=== PATIENT | male | born 1955 | race Caucasian/White ===

== ENCOUNTER 2024-10-04 19:51 | Inpatient (IN) | payer MEDICARE, OTHER ==
[2024-10-04] MEDS: cefTRIAXone 2 GM Vial IVPUSH SCH (20:20)
[2024-10-04] MEDS: Sodium Chloride 0.9% 1,000 ML IV SCH ×2 (20:22→21:50)
[2024-10-04] MEDS: Doxycycline 100 MG in Sodium Chloride 0.9% 100 ML IV ONE (20:23)
[2024-10-04 20:32] LABS: BLOOD UREA NITROGEN,BUN 10 mg/dL (7-18); BUN/CREATININE RATIO 12.5 (9-20); CALCIUM 8.6 mg/dL (8.6-10.2); CARBON DIOXIDE,CO2 28 mmol/L (21-32); CHLORIDE,CL 99 mmol/L (100-110); CREATININE 0.8 mg/dL (0.70-1.30); EST CRCL DRUG DOSING (CG) 102.75 mL/min; ESTIMATED GFR 96 mL/min (>60); GLUCOSE RANDOM 148 mg/dL (80-116); HEMOGLOBIN 15.6 g/dL (12.9-17.7); MEAN CORPUSCULAR HEMOGLOBIN 30.4 pg (27.0-33.3); POTASSIUM,K 3.7 mmol/L (3.5-5.3); SODIUM,NA 136 mmol/L (135-145); WHITE BLOOD CELL COUNT,WBC 9.9 x10-3/uL (3.2-10.1)
[2024-10-04 20:34] LABS: HEMATOCRIT 44.6 % (38.3-50.1); MEAN CORPUSCULAR HGB CONC 34.9 g/dL (28.7-35.3); MEAN CORPUSCULAR VOLUME 87.1 fL (80.8-98.7); MEAN PLATELET VOLUME 8.4 fL (6.7-11.0); PLATELET COUNT,PLT 138 x10(3)uL (117-477); RED BLOOD CELL COUNT 5.12 x10(6)uL (3.90-5.90)
[2024-10-04 20:38] LABS: A/G RATIO 1.1; ALANINE AMINOTRANSFERASE,ALT 32 U/L (12-36); ALBUMIN 3.6 g/dL (3.2-4.6); ALKALINE PHOSPHATASE 86 IU/L (56-112); ASPARTATE AMNIOTRANSFERASE,AST 20 IU/L (5-25); BILIRUBIN TOTAL 0.9 mg/dL (0.1-1.3); PROTEIN TOTAL,TP 6.8 g/dL (6.0-8.0)
[2024-10-04 20:43] LABS: LACTIC ACID 1.9 mmol/L (0.4-2.0)
[2024-10-04] MEDS: Levalbuterol HCl 1.25 MG/3 ML Neb NEB ONE (20:47)
[2024-10-04 20:58] LABS: EOSINOPHILS PERCENT MAN 1 % (0-5); LYMPHOCYTES PERCENT MAN 5 % (13-37); MONOCYTES PERCENT MAN 6 % (4-12); SEG NEUTROPHILS PERCENT MAN 88 % (46-82)
[2024-10-04] MEDS: Iopamidol 755 Mg/ML 200 ML Bottle IV ONE (21:12)
[2024-10-04] MEDS ORDERED: Ketorolac 30 MG/ML SDV IVPUSH PRN (21:36)
[2024-10-04] MEDS ORDERED: Ketorolac 15 MG/ML SDV IVPUSH PRN (21:46)
[2024-10-04 22:05] LABS: BILIRUBIN,URINE NEGATIVE (NEGATIVE); GLUCOSE,URINE NORMAL (NORMAL); KETONES,URINE NEGATIVE (NEGATIVE); LEUKOCYTE ESTERASE,URINE NEGATIVE (NEGATIVE); NITRITE,URINE NEGATIVE (NEGATIVE); OCCULT BLOOD,URINE NEGATIVE (NEGATIVE); PROTEIN,URINE 30 mg/dL (NEGATIVE); UROBILINOGEN,URINE 1 mg/dL (NEGATIVE)
[2024-10-04] MEDS: methylPREDNISolone Sodium Succinate 125 MG/2 ML SDV IVPUSH SCH (22:05)
[2024-10-04 22:08] LABS: APPEARANCE,URINE CLEAR (CLEAR); COLOR,URINE YELLOW (YELLOW)
[2024-10-04] MEDS: Acetaminophen 325 MG Tab PO PRN (22:12)
[2024-10-04] MEDS: Enoxaparin 40 MG/0.4 ML Syringe SUBCUT SCH (22:16)
[2024-10-04 22:22] LABS: BACTERIA,URINE FEW (NS); FINE GRANULAR CASTS,URINE OCCASIONAL (NS); RBC,URINE 0-5 (0-5); SQUAMOUS EPITHELIAL CELLS,UR FEW (NS,R,O); WBC,URINE 0-5 (0-5)
[2024-10-04] MEDS: traZODone 50 MG Tab PO ONE (22:51)
[2024-10-05] MEDS: Sodium Chloride 0.9% 10 ML Syringe FLUSH PRN (06:11)
[2024-10-05] MEDS: Albuterol/Ipratropium 3.0-0.5 MG/3 ML Neb Soln NEB SCH (06:11)
[2024-10-05 06:13] LABS: HEMATOCRIT 46.1 % (38.3-50.1); HEMOGLOBIN 15.7 g/dL (12.9-17.7); MEAN CORPUSCULAR HEMOGLOBIN 30.1 pg (27.0-33.3); MEAN CORPUSCULAR VOLUME 88.5 fL (80.8-98.7); MEAN PLATELET VOLUME 8.2 fL (6.7-11.0); PLATELET COUNT,PLT 130 x10(3)uL (117-477); RED BLOOD CELL COUNT 5.21 x10(6)uL (3.90-5.90); RED CELL DISTRIBUTION WIDTH 12.9 % (12.4-15.0); WHITE BLOOD CELL COUNT,WBC 6.8 x10-3/uL (3.2-10.1)
[2024-10-05 06:22] LABS: ALANINE AMINOTRANSFERASE,ALT 34 U/L (12-36); ALBUMIN 3.5 g/dL (3.2-4.6); ALKALINE PHOSPHATASE 85 IU/L (56-112); ASPARTATE AMNIOTRANSFERASE,AST 18 IU/L (5-25); BILIRUBIN TOTAL 0.4 mg/dL (0.1-1.3); BLOOD UREA NITROGEN,BUN 11 mg/dL (7-18); BUN/CREATININE RATIO 12.2 (9-20); CALCIUM 8.8 mg/dL (8.6-10.2); CARBON DIOXIDE,CO2 33 mmol/L (21-32); CHLORIDE,CL 104 mmol/L (100-110); CREATININE 0.9 mg/dL (0.70-1.30); EST CRCL DRUG DOSING (CG) 91.33 mL/min; ESTIMATED GFR 93 mL/min (>60); GLUCOSE RANDOM 183 mg/dL (80-116); POTASSIUM,K 4.4 mmol/L (3.5-5.3); SODIUM,NA 142 mmol/L (135-145)
[2024-10-05 06:30] LABS: LYMPHOCYTES PERCENT MAN 5 % (13-37); MONOCYTES PERCENT MAN 1 % (4-12); SEG NEUTROPHILS PERCENT MAN 94 % (46-82)
[2024-10-05 06:32] LABS: C-REACTIVE PROTEIN 6.68 mg/dL (<0.50)
[2024-10-05] MEDS: Azithromycin 500 MG in Sodium Chloride 0.9% 250 ML IV SCH (10:40)
[2024-10-05 16:59] LABS: BASE EXCESS ARTERIAL,POC -2 mmol/L (-2 - 3+); HCO3 ARTERIAL,POC 24 mmol/L (21-28); O2 SATURATION ARTERIAL,POC 83.2 % (94-98); PO2 ARTERIAL,POC 50 mmHg (83-108)
[2024-10-05] MEDS: LORazepam 0.5 MG Tab PO PRN (18:07)
[2024-10-05] MEDS: Furosemide 40 MG/4 ML VIAL IVPUSH ONE (19:24)
[2024-10-05] MEDS: amLODIPine 5 MG Tab PO SCH (20:39)
[2024-10-06 06:28] LABS: HEMATOCRIT 48.7 % (38.3-50.1); HEMOGLOBIN 16.3 g/dL (12.9-17.7); MEAN CORPUSCULAR HEMOGLOBIN 29.8 pg (27.0-33.3); MEAN CORPUSCULAR HGB CONC 33.5 g/dL (28.7-35.3); MEAN PLATELET VOLUME 8.5 fL (6.7-11.0); PLATELET COUNT,PLT 162 x10(3)uL (117-477); RED BLOOD CELL COUNT 5.48 x10(6)uL (3.90-5.90); RED CELL DISTRIBUTION WIDTH 13.3 % (12.4-15.0); WHITE BLOOD CELL COUNT,WBC 15.7 x10-3/uL (3.2-10.1)
[2024-10-06 06:37] LABS: A/G RATIO 0.9; ALANINE AMINOTRANSFERASE,ALT 36 U/L (12-36); ALBUMIN 3.4 g/dL (3.2-4.6); ALKALINE PHOSPHATASE 74 IU/L (56-112); ASPARTATE AMNIOTRANSFERASE,AST 29 IU/L (5-25); BILIRUBIN TOTAL 0.3 mg/dL (0.1-1.3); BLOOD UREA NITROGEN,BUN 23 mg/dL (7-18); BUN/CREATININE RATIO 20.9 (9-20); CALCIUM 9.1 mg/dL (8.6-10.2); CARBON DIOXIDE,CO2 33 mmol/L (21-32); CHLORIDE,CL 105 mmol/L (100-110); CREATININE 1.1 mg/dL (0.70-1.30); EST CRCL DRUG DOSING (CG) 74.73 mL/min; ESTIMATED GFR 73 mL/min (>60); GLUCOSE RANDOM 165 mg/dL (80-116); SODIUM,NA 146 mmol/L (135-145)
[2024-10-06 06:49] LABS: BAND PERCENT MAN 1 % (0-6); LYMPHOCYTES PERCENT MAN 12 % (13-37); MONOCYTES PERCENT MAN 4 % (4-12); SEG NEUTROPHILS PERCENT MAN 83 % (46-82)
[2024-10-06] MEDS: amLODIPine 5 MG Tab PO SCH (08:30)
[2024-10-06] MEDS: FLU (Fluad Triv) TS24-25 (65UP)/MF59C/PF 45 MCG/0.5 ML Syringe IM ONE (09:25)
[2024-10-06] MEDS: LORazepam 0.5 MG Tab PO PRN (13:36)
[2024-10-06] MEDS: Rosuvastatin 10 MG Tab PO SCH (18:07)
[2024-10-07 06:36] LABS: HEMATOCRIT 45.9 % (38.3-50.1); HEMOGLOBIN 15.4 g/dL (12.9-17.7); MEAN CORPUSCULAR HEMOGLOBIN 29.8 pg (27.0-33.3); MEAN CORPUSCULAR HGB CONC 33.5 g/dL (28.7-35.3); MEAN PLATELET VOLUME 8.3 fL (6.7-11.0); PLATELET COUNT,PLT 159 x10(3)uL (117-477); RED BLOOD CELL COUNT 5.16 x10(6)uL (3.90-5.90); RED CELL DISTRIBUTION WIDTH 13.6 % (12.4-15.0); WHITE BLOOD CELL COUNT,WBC 14.1 x10-3/uL (3.2-10.1)
[2024-10-07 06:43] LABS: BLOOD UREA NITROGEN,BUN 22 mg/dL (7-18); BUN/CREATININE RATIO 24.4 (9-20); CALCIUM 8.8 mg/dL (8.6-10.2); CARBON DIOXIDE,CO2 33 mmol/L (21-32); CHLORIDE,CL 106 mmol/L (100-110); CREATININE 0.9 mg/dL (0.70-1.30); EST CRCL DRUG DOSING (CG) 91.33 mL/min; ESTIMATED GFR 93 mL/min (>60); GLUCOSE RANDOM 126 mg/dL (80-116); SODIUM,NA 144 mmol/L (135-145)
[2024-10-07 06:57] LABS: LYMPHOCYTES PERCENT MAN 11 % (13-37); MONOCYTES PERCENT MAN 3 % (4-12); SEG NEUTROPHILS PERCENT MAN 86 % (46-82)
[2024-10-07] MEDS: methylPREDNISolone Sodium Succinate 125 MG/2 ML SDV IVPUSH SCH (08:13)
[2024-10-07] MEDS: Aspirin 325 MG Tab.EC PO ONE (11:00)
== END 2024-10-07 18:10 | disposition home or self-care (01) | DRG 189 ==
LOC: FB.ED 19:51 → FB.MS 21:36
PROVIDERS: ADMIT Family Medicine; ATTEND Family Medicine
DX: J96.01 Acute respiratory failure with hypoxia (principal); J22 Unspecified acute lower respiratory infection; E66.9 Obesity, unspecified; Z79.899 Other long term (current) drug therapy; J45.909 Unspecified asthma, uncomplicated; Z68.35 Body mass index [BMI] 35.0-35.9, adult; I10 Essential (primary) hypertension; G47.30 Sleep apnea, unspecified; E78.5 Hyperlipidemia, unspecified; E78.00 Pure hypercholesterolemia, unspecified; F12.10 Cannabis abuse, uncomplicated; E86.0 Dehydration; I25.2 Old myocardial infarction; Z88.5 Allergy status to narcotic agent; Z87.81 Personal history of (healed) traumatic fracture; Z87.891 Personal history of nicotine dependence
CPT/HCPCS: 36415; 71045; 71260; 80053; 83605; 83880; 84484; 85025; 86140; 87040 ×2; 87428; 93005; 94640; 96365; 99284; J0696; J3490 ×2; J7030; J7612; Q9967; 71046; 80048; 81001; 82803; 85379; 90653; 93010; 94150; 99222; 99232; 99238; 99285; A9270-GY; G0008; J0456; J1650; J1940; J2919; J7050; J7620

== ENCOUNTER 2025-01-26 21:10 | Emergency (ER) | payer MEDICARE ==
[2025-01-26] MEDS ORDERED: Midazolam 1 MG/ML 2 ML SDV IV ONE (21:11)
[2025-01-26] MEDS ORDERED: Propofol 200 MG/20 ML SDV IV ONE (21:11)
[2025-01-26] MEDS: Sodium Chloride 0.9% 10 ML Syringe FLUSH PRN (21:20)
[2025-01-26] MEDS: Sodium Chloride 0.9% 1,000 ML IV SCH (21:25)
[2025-01-26 21:40] LABS: BASOPHILS PERCENT AUTO 0.3 % (0.3-3.8); EOSINOPHILS ABSOLUTE AUTO 0.5 x10-3/uL (0.0-0.6); EOSINOPHILS PERCENT AUTO 4.3 % (0.1-6.8); HEMATOCRIT 47.4 % (38.3-50.1); HEMOGLOBIN 15.8 g/dL (12.9-17.7); LYMPHOCYTES ABSOLUTE AUTO 4.8 x10-3/uL (0.5-4.5); LYMPHOCYTES PERCENT AUTO 38.7 % (15.8-45.3); MEAN CORPUSCULAR HEMOGLOBIN 30.2 pg (27.0-33.3); MEAN CORPUSCULAR HGB CONC 33.4 g/dL (28.7-35.3); MEAN CORPUSCULAR VOLUME 90.3 fL (80.8-98.7); MEAN PLATELET VOLUME 8.9 fL (6.7-11.0); MONOCYTES ABSOLUTE AUTO 1.2 x10-3/uL (0.0-1.2); MONOCYTES PERCENT AUTO 9.4 % (5.5-15.2); NEUTROPHILS ABSOLUTE AUTO 5.9 x10-3/uL (1.7-6.9); NEUTROPHILS PERCENT AUTO 47.4 % (40.3-71.8); PLATELET COUNT,PLT 199 x10(3)uL (117-477); RED BLOOD CELL COUNT 5.25 x10(6)uL (3.90-5.90); WHITE BLOOD CELL COUNT,WBC 12.4 x10-3/uL (3.2-10.1)
[2025-01-26 21:43] LABS: BLOOD UREA NITROGEN,BUN 20 mg/dL (7-18); BUN/CREATININE RATIO 16.7 (9-20); CALCIUM 8.6 mg/dL (8.6-10.2); CARBON DIOXIDE,CO2 23 mmol/L (21-32); CHLORIDE,CL 102 mmol/L (100-110); CREATININE 1.2 mg/dL (0.70-1.30); ESTIMATED GFR 66 mL/min (>60); GLUCOSE RANDOM 201 mg/dL (80-116); POTASSIUM,K 4.4 mmol/L (3.5-5.3); SODIUM,NA 139 mmol/L (135-145)
[2025-01-26] MEDS: Ondansetron 4 MG/2 ML SDV IVPUSH ONE (21:45)
[2025-01-26 21:50] LABS: ALANINE AMINOTRANSFERASE,ALT 38 U/L (12-36); ALBUMIN 3.4 g/dL (3.2-4.6); ALKALINE PHOSPHATASE 81 IU/L (56-112); ASPARTATE AMNIOTRANSFERASE,AST 26 IU/L (5-25); BILIRUBIN TOTAL 0.4 mg/dL (0.1-1.3); PROTEIN TOTAL,TP 6.9 g/dL (6.0-8.0)
[2025-01-26] MEDS: Amiodarone 150 MG/3 ML SDV IVPUSH ONE (22:06)
[2025-01-26] MEDS: Aspirin 81 MG Tab.Chew PO ONE (22:15)
[2025-01-26] MEDS: Amiodarone 360 MG/200 ML 360 MG/200 ML BAG IV SCH (22:50)
[2025-01-26] MEDS: Heparin Sodium 5,000 Units/ML Vial IVPUSH ONE (22:52)
[2025-01-26] MEDS: Heparin Sodium/0.45% NaCl 500 ML IV SCH (22:53)
[2025-01-26 23:02] LABS: INR 1.07 (1.00-1.24); PTT,PARTIAL THROMBOPLSTIN TIME 27.7 SECONDS (24.4-33.2)
== END 2025-01-26 23:30 ==
LOC: FB.ED 21:10
DX: J96.01 Acute respiratory failure with hypoxia (principal); I47.20 Ventricular tachycardia, unspecified; I24.9 Acute ischemic heart disease, unspecified; I10 Essential (primary) hypertension; E78.00 Pure hypercholesterolemia, unspecified; J44.9 Chronic obstructive pulmonary disease, unspecified; F17.200 Nicotine dependence, unspecified, uncomplicated; Z88.5 Allergy status to narcotic agent; Z79.51 Long term (current) use of inhaled steroids; Z79.899 Other long term (current) drug therapy
CPT/HCPCS: 00410; 36415; 71045; 80053; 80307; 83735; 83880; 84484; 85025; 85610; 85730; 92960; 93005; 93010; 96361; 96365; 96368; 96375; 96376; 99285; 99285-25; A9270-GY; J0282; J0283; J1644; J2250; J2405; J2704; J7030

== ENCOUNTER 2025-02-13 13:56 | Emergency (ER) | payer MEDICARE ==
[2025-02-13] MEDS ORDERED: Midazolam 1 MG/ML 2 ML SDV IV ONE (13:57)
[2025-02-13] MEDS ORDERED: Propofol 200 MG/20 ML SDV IV ONE (13:57)
[2025-02-13] MEDS: Sodium Chloride 0.9% 500 ML IV ONE (14:30)
[2025-02-13] MEDS: Albuterol/Ipratropium 3.0-0.5 MG/3 ML Neb Soln NEB ONE (14:45)
[2025-02-13] MEDS: Piperacillin/Tazobactam 4.5 GM in Sodium Chloride 0.9% 100 ML IV ONE (14:45)
[2025-02-13 14:47] LABS: BASOPHILS PERCENT AUTO 0.5 % (0.3-3.8); EOSINOPHILS ABSOLUTE AUTO 0.2 x10-3/uL (0.0-0.6); HEMATOCRIT 29.4 % (38.3-50.1); HEMOGLOBIN 9.9 g/dL (12.9-17.7); LYMPHOCYTES ABSOLUTE AUTO 0.9 x10-3/uL (0.5-4.5); LYMPHOCYTES PERCENT AUTO 10.1 % (15.8-45.3); MEAN CORPUSCULAR HEMOGLOBIN 29.6 pg (27.0-33.3); MEAN CORPUSCULAR HGB CONC 33.5 g/dL (28.7-35.3); MEAN CORPUSCULAR VOLUME 88.2 fL (80.8-98.7); MEAN PLATELET VOLUME 7.3 fL (6.7-11.0); MONOCYTES ABSOLUTE AUTO 0.8 x10-3/uL (0.0-1.2); MONOCYTES PERCENT AUTO 8.9 % (5.5-15.2); NEUTROPHILS ABSOLUTE AUTO 6.8 x10-3/uL (1.7-6.9); NEUTROPHILS PERCENT AUTO 78.5 % (40.3-71.8); PLATELET COUNT,PLT 255 x10(3)uL (117-477); RED BLOOD CELL COUNT 3.34 x10(6)uL (3.90-5.90); RED CELL DISTRIBUTION WIDTH 13.3 % (12.4-15.0); WHITE BLOOD CELL COUNT,WBC 8.7 x10-3/uL (3.2-10.1)
[2025-02-13 14:49] LABS: BLOOD UREA NITROGEN,BUN 17 mg/dL (7-18); BUN/CREATININE RATIO 13.1 (9-20); CALCIUM 8.6 mg/dL (8.6-10.2); CARBON DIOXIDE,CO2 29 mmol/L (21-32); CHLORIDE,CL 105 mmol/L (100-110); CREATININE 1.3 mg/dL (0.70-1.30); EST CRCL DRUG DOSING (CG) 63.23 mL/min; ESTIMATED GFR 60 mL/min (>60); GLUCOSE RANDOM 127 mg/dL (80-116); SODIUM,NA 143 mmol/L (135-145)
[2025-02-13 14:55] LABS: ALANINE AMINOTRANSFERASE,ALT 31 U/L (12-36); ALBUMIN 3.1 g/dL (3.2-4.6); ALKALINE PHOSPHATASE 77 IU/L (56-112); ASPARTATE AMNIOTRANSFERASE,AST 24 IU/L (5-25); BILIRUBIN TOTAL 0.5 mg/dL (0.1-1.3); PROTEIN TOTAL,TP 6.2 g/dL (6.0-8.0)
[2025-02-13 15:04] LABS: BASE EXCESS VENOUS,POC 3 mmol/L (-2 - 3+); PCO2 VENOUS,POC 39 mmHg (41-51); PH VENOUS,POC 7.45 pH Units (7.32-7.43)
[2025-02-13] MEDS: VANCOmycin 2 GM/400 ML 2 GM in Premix Bag 1 BAG IV ONE (15:15)
[2025-02-13 15:17] LABS: TROPONIN I 97.8 pg/mL (4.0-60.3)
[2025-02-13 15:18] LABS: C-REACTIVE PROTEIN 2.84 mg/dL (<0.50)
[2025-02-13] MEDS ORDERED: Albuterol/Ipratropium 3.0-0.5 MG/3 ML Neb Soln NEB SCH (21:00)
== END 2025-02-13 18:25 ==
LOC: FB.ED 13:56
DX: I95.9 Hypotension, unspecified (principal); R00.0 Tachycardia, unspecified; I10 Essential (primary) hypertension; E78.00 Pure hypercholesterolemia, unspecified; I45.6 Pre-excitation syndrome; Z88.6 Allergy status to analgesic agent; Z79.82 Long term (current) use of aspirin; Z79.899 Other long term (current) drug therapy; Z90.49 Acquired absence of other specified parts of digestive tract; Z95.1 Presence of aortocoronary bypass graft; Z87.891 Personal history of nicotine dependence; Z79.01 Long term (current) use of anticoagulants
CPT/HCPCS: 36415; 71045; 80053; 83605; 83735; 83880; 84484; 85025; 86140; 87040; 92960; 93005; 94640; 96365; 96366; 96367; 99285-25; A9270-GY; J2543; J3372; J7030